=== PATIENT | female | born 2005 | race Hispanic/Latino ===

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

== ENCOUNTER 2025-02-05 19:16 | Emergency (ER) | payer MEDICAID ==
[~2025-02-05] VITALS: Ht 149.9 cm; Wt 106.6 kg
--- NOTE | 2025-02-05 19:30 | NUR ---
UA CUP PROVIDED
[2025-02-05 19:55] LABS: IMMATURE GRANULOCYTE ABSOLUTE 0.12 K/uL (0-1); NUCLEATED RED BLOOD CELLS 0.0 % (0.0-0.19); PLATELET COUNT (AUTO) 257 K/uL (130-400); RED BLOOD CELL COUNT(AUTO) 4.06 MIL/uL (4.00-5.50); RED CELL DISTRIBUTION WIDTH 14.3 % (11.0-15.5); WHITE BLOOD COUNT (AUTO) 15.8 K/uL (4.8-10.8)
--- NOTE | 2025-02-05 20:01 | ERN ---
General Chief Complaint: OB>20 weeks gest. Stated Complaint: ABD PAIN,HEADACHE Time Seen by MD: 19:47 Time Seen by Midlevel: 19:47 Source: patient History of Present Illness Initial Comments Patient is a 19-year-old female who is [id number] weeks and is followed by Dr. Naila Koroma presents to the emergency department for evaluation of right-sided abdominal cramping. She also reports a headache. Denies any other symptoms. Allergies: Coded Allergies: Penicillins (Unverified Allergy, Unknown, 02/22/19) amoxicillin (Unverified Allergy, Unknown, 02/22/19) nystatin (Unverified Allergy, Unknown, RASH, 06/11/19) Home Meds Active Scripts Nitrofurantoin Monohyd/M-Cryst (Macrobid 100 mg Capsule) 100 Mg Capsule, 100 MG PO BID for 5 Days, #10 CAP Prov:RALEIGH FORTE 03/01/22 Reported Medications Vits W-Ca,Fe,FA(<1Mg) ( Vitamins) 1 Each Tablet, 1 EACH PO DAILY, TAB 06/11/19 Past Medical History Past Medical History: No Pertinent History Past Surgical History: Tonsillectomy Female( History) : 3 Para: 2 Aborts: 0 ROS Dictation CONSTITUTIONAL: Negative except for HPI HEAD/FACE: Negative except for HPI EENT: Negative except for HPI RESPIRATORY: Negative except for HPI GASTROINTESTINAL/ABDOMINAL: Negative except for HPI GENITOURINARY: Negative except for HPI MUSCULOSKELETAL: Negative except for HPI INTEGUMENTARY: Negative except for HPI NEUROLOGICAL/PSYCH: Negative except for HPI HEMATOLOGIC/LYMPHATIC: Negative except for HPI All Systems Negative, Except as noted above. 13 point review of systems assessed and all negative except for above. Physical Exam Physical Exam Dictation Vital Signs reviewed General Appearance: Alert, oriented x 3, no acute distress, well developed, n ourished. Head and Face: non-traumatic. Eyes: PERRL, pink conjunctivas, eyelid no trauma, anterior chamber with arcus senilis. Ears: Pinnas intact and no signs of trauma or erythema ear canals clear and no discharge TM no erythema Nose: No discharge, no bleeding. Oropharynx: Mouth normal, tongue pink, pharynx clear,no erythema, tonsils no exudates, no abscesses noted, mucous membrane moist Neck: Supple, non-tender, no thyromegaly, no masses, no JVD, no bruits Breast:Deferred Chest:No tenderness, no crepitus, no paradoxical movement, no retractions Lungs:Clear, well-ventilated, symmetric, no rales, no wheezing, no rhonchi, no stridor, good breath sounds bilaterally Heart: Regular rate, regular rhythm, no murmur, no gallops Vascular: no peripheral edema, Abdomen: Soft, positive bowel sounds, nondistended, no guarding, nontender, no rebound, no masses no hepatomegaly, no splenomegaly, no Rutledge's sign, no hernias. Rectal: Deferred Genital: Deferred Neurological: Normal speech, motor function intact, sensory function intact Musculoskeletal: Neck nontender, full range of motion, back nontender, full range of motion, Extremities: nontender, full range of motion Skin: Color pink, dry, no turgor, no rash, no lacerations, no abrasions, no contusions. Lymphatic: Deferred Results Laboratory and Microbiology Lab and Micro Result Laboratory Tests Test 02/05/25 19:38 White Blood Count 15.8 K/uL (4.8-10.8) H Red Blood Count 4.06 MIL/uL (4.00-5.50) Hemoglobin 10.7 g/dL (12.0-16.0) L Hematocrit 33.6 % (36-48) L Mean Corpuscular Volume 82.8 fL (80-100) Mean Corpuscular Hemoglobin 26.4 pg (27.0-33.0) L Mean Corpuscular Hemoglobin Concent 31.8 g/dL (32.0-36.0) L Red Cell Distribution Width 14.3 % (11.0-15.5) Platelet Count 257 K/uL (130-400) Mean Platelet Volume 11.1 fL (7.5-10.5) H Immature Granulocyte % (Auto) 0.8 % (0-1) Neutrophils (%) (Auto) 77.6 % (40.0-77.0) H Lymphocytes (%) (Auto) 15.7 % (21.0-51.0) L Monocytes (%) (Auto) 4.9 % (3.0-13.0) Eosinophils (%) (Auto) 0.7 % (0.0-8.0) Basophils (%) (Auto) 0.3 % (0.0-5.0) Neutrophils # (Auto) 12.3 K/uL (1.8-7.7) H Lymphocytes # (Auto) 2.5 K/uL (1.0-4.8) Monocytes # (Auto) 0.8 K/uL (0.1-1.0) Eosinophils # (Auto) 0.11 K/uL (0.00-0.70) Basophils # (Auto) 0.04 K/uL (0.00-0.20) Absolute Immature Granulocyte (auto 0.12 K/uL (0-1) Nucleated Red Blood Cells 0.0 % (0.0-0.19) Urine Color LIGHT-YELLOW (YELLOW) Urine Appearance HAZY (CLEAR) Urine pH 7.0 (5.0-8.0) Urine Specific [place] 1.018 (1.001-1.031) Urine Protein NEGATIVE mg/dL (NEGATIVE) Urine Glucose (UA) NEGATIVE mg/dL (NEGATIVE) Urine Ketones NEGATIVE mg/dL (NEGATIVE) Urine Occult Blood NEGATIVE (NEGATIVE) Urine Nitrate NEGATIVE (NEGATIVE) Urine Bilirubin NEGATIVE mg/dL (NEGATIVE) Urine Urobilinogen 2.0 mg/dL (0.2-1.0) H Urine Leukocyte Esterase NEGATIVE [place]/uL Urine RBC 0-1 /HPF (0-1) Urine WBC 0-1 /HPF (0-1) Urine Squamous Epithelial Cells FEW /HPF (0-2) Urine Amorphous Crystals (Auto) FEW /LPF (None Seen) Urine Bacteria FEW /HPF (None Seen) Sodium Level 139 mmol/L (136-145) Potassium Level 4.1 mmol/L (3.5-5.1) Chloride Level 104 mmol/L (101-111) Carbon Dioxide Level 27 mmol/L (21-32) Blood Urea Nitrogen 8 mg/dL (7-18) Creatinine 0.6 mg/dL (0.5-1.0) Glomerular Filtration Rate Calc 131 mL/min (>90) Random Glucose 87 mg/dL (70-105) Total Calcium 9.0 mg/dL (8.5-10.1) Total Bilirubin 0.2 mg/dL (0.2-1.0) Aspartate Amino Transf (AST/SGOT) 12 U/L (10-37) Alanine Aminotransferase (ALT/SGPT) 14 U/L (12-78) Alkaline Phosphatase 86 U/L (50-136) Total Protein 6.7 g/dL (6.0-8.3) Albumin 2.5 g/dL (3.5-5.0) L Lipase 30 U/L (16-77) Human Chorionic Gonadotropin, Quant 77882 mIU/mL (0-5) H Labs Reviewed?: Yes MDM MDM: Patient is a 19-year-old female who is weeks and is followed by Dr. Naila Koroma presents to the emergency department for evaluati on of right-sided abdominal cramping. She also reports a headache. Denies any other symptoms. Physical examination is unremarkable. Your blood work today showed a slightly elevated white blood cell count. However this appears to be nonspecific as there are no signs of infection. The rest of your blood work is unremarkable. You are not anemic. Your kidney function is normal. Your electrolytes are normal. Your urinalysis does not show any evidence of infection or blood. Given that there is no microscopic blood in your urinalysis there was a very low risk of having a kidney stone. Your blood work also shows no signs of a kidney infection. Your pelvic ultrasound shows a single live intrauterine with a gestational age of 21 weeks and five days with no abnormalities. I recommend you follow up with your primary care doctor and OBGYN for further evaluation. Differential diagnosis: Urinary tract infection, constipation, pyelonephritis There are no social concerns with this patient. Prescription drug management Prescriptions will include: None Medical management and examination interpretation discussions were had by me with other qualified healthcare professionals as indicated for the patient's care. ED Course Orders Procedure Category Date Status Time Cbc With Differential LAB 02/05/25 Complete 19:31 Comprehensive LAB 02/05/25 Complete Metabolic Panel 19:31 Hcg,Quantitative LAB 02/05/25 Complete 19:31 Urinalysis Profile LAB 02/05/25 Complete 19:31 Us Ob >14 Weeks US 02/05/25 Resulted 19:58 Lipase LAB 02/05/25 Complete 19:38 Vital Signs Date Time Temp Pulse Resp B/P (MAP) Pulse Ox O2 Delivery O2 Flow Rate FiO2 02/05/25 19:26 98.2 103 20 138/85 100 Room Air [facility] [address] [place] [address] [id number] IMAGING REPORT Signed PATIENT: RICHARD JOHNSON MR#: [id number] : 2005 SEX: F AGE: 19 LOCATION: [facility] ORDER 58 STATUS: REG ER REPORT#: [id number] SERVICE 57 REASON: abdominal cramping during ORDERING PHYSICIAN: CHARLEY ACUNA PROCEDURE: OB >14 - US OB >14 WEEKS EXAMINATION: COMPLETE TRANSABDOMINAL OBSTETRIC ULTRASOUND. CLINICAL INDICATION: OB second trimester. Abdominal cramping. COMPARISON: None. TECHNIQUE: Grayscale ultrasonography of the lower abdomen and pelvis. FINDINGS: A single, live, intrauterine fetus is seen in cephalic presentation. The estimated date of delivery as per the ultrasound done today is 06/13/2025, corresponding to a gestational age of 21 weeks 5 days. The placenta is posterior, grade I maturity. No placenta previa. Cervix is closed, measures 3.7 cm. Heart rate is 146 beats per minute. weight is 490 +/- 74 g (48%). The parameters are as follows: Biparietal diameter: 4.9 cm (EGA - 20 weeks, 6 days). Head circumference: 18.7 cm (EGA - 21 weeks, 0 days). Abdominal circumference: 17.8 cm (EGA - 22 weeks, 5 days). Femoral length: 3.8 cm (EGA - 22 weeks, 2 days). HC/AC ratio: 1.05 Estimated gestational age: 21 Weeks 5 Days. EDC (by LMP): 06/09/2025 and EDC (by measurement): 06/13/2025. parts, including the spine, stomach, kidneys, urinary bladder, anterior abdominal wall, lower extremities, upper extremities, three-vessel umbilical cord, face, septum pellucidum, and cerebellum, appear normal. There is a possible chorionic bump that measures 4.9 x 2.4 x 3.5 cm. The lateral ventricle measures 0.6 cm. Amniotic fluid is normal for the period of gestation, with the largest pocket measuring 4.6 cm. The amniotic fluid index is: 12.8 cm. IMPRESSION: Single live intrauterine with corresponding gestational age of 21 weeks and 5 days with cephalic presentation at the time of this scan and with no obvious anatomical abnormality. Possible chorionic bump. Recommend follow-up ultrasound. /[place] DICTATED BY: PACO WILSON Jr., MD DATE: 02/05/252323 ELECTRONICALLY SIGNED BY: PACO WILSON Jr., MD DATE: 02/05/252323 DX & DISP Disposition: Discharge Departure Impression: Primary Impression: Second trimester Condition: Stable Additional Instructions: Your blood work today showed a slightly elevated white blood cell count. However this appears to be nonspecific as there are no signs of infection. The rest of your blood work is unremarkable. You are not anemic. Your kidney function is normal. Your electrolytes are normal. Your urinalysis does not show any evidence of infection or blood. Given that there is no microscopic blood in your urinalysis there was a very low risk of having a kidney stone. Your blood work also shows no signs of a kidney infection. Your pelvic ultrasound shows a single live intrauterine with a gestational age of 21 weeks and five days with no abnormalities. I recommend you follow up with your primary care doctor and OBGYN for further evaluation. Referrals: JAUN LEE MD (PCP) Time of Disposition: 22:36 I have reviewed the case, and I agree with, Diagnosis and Plan I performed the substantive portion of the visit. I have reviewed and personally made and approve the management plan that is documented in the note by myself or the GRAHAM. I acknowledge for responsibility for the patient's management plan. CHARLEY ACUNA PAC Feb 05, 2025 20:01
[2025-02-05 20:08] LABS: CREATININE 0.6 mg/dL (0.5-1.0); GLOMERULAR FILTR. RATE CALC 131.0 mL/min (>90); GLUCOSE,RANDOM 87.0 mg/dL (70-105); SODIUM SERUM 139.0 mmol/L (136-145); UREA NITROGEN, BLOOD 8.0 mg/dL (7-18)
[2025-02-05 20:15] LABS: GLUCOSE, URINE (UA) NEGATIVE (NEGATIVE); LEUKOCYTE ESTERASE ,URINE NEGATIVE Leu/uL (NEGATIVE); NITRATE,URINE NEGATIVE (NEGATIVE); OCCULT BLOOD,URINE NEGATIVE (NEGATIVE)
[2025-02-05 20:16] LABS: ADD UA MICROSCOPIC YES; APPEARANCE,URINE HAZY (CLEAR)
[2025-02-05 20:21] LABS: SQUAMOUS EPITHELIAL CELL,UR FEW /HPF (0-2)
[2025-02-05 20:35] LABS: ASPARTATE AMINOTRANSFERASE 12.0 U/L (10-37); TOTAL PROTEIN, SERUM 6.7 g/dL (6.0-8.3)
--- NOTE | 2025-02-05 22:25 | HMCIMG ---
EXAMINATION: COMPLETE TRANSABDOMINAL OBSTETRIC ULTRASOUND. CLINICAL INDICATION: OB second trimester. Abdominal cramping. COMPARISON: None. TECHNIQUE: Grayscale ultrasonography of the lower abdomen and pelvis. FINDINGS: A single, live, intrauterine fetus is seen in cephalic presentation. The estimated date of delivery as per the ultrasound done today is 06/13/2025, corresponding to a gestational age of 21 weeks 5 days. The placenta is posterior, grade I maturity. No placenta previa. Cervix is closed, measures 3.7 cm. Heart rate is 146 beats per minute. weight is 490 +/- 74 g (48%). The parameters are as follows: Biparietal diameter: 4.9 cm (EGA - 20 weeks, 6 days). Head circumference: 18.7 cm (EGA - 21 weeks, 0 days). Abdominal circumference: 17.8 cm (EGA - 22 weeks, 5 days). Femoral length: 3.8 cm (EGA - 22 weeks, 2 days). HC/AC ratio: 1.05 Estimated gestational age: 21 Weeks 5 Days. EDC (by LMP): 06/09/2025 and EDC (by measurement): 06/13/2025. parts, including the spine, stomach, kidneys, urinary bladder, anterior abdominal wall, lower extremities, upper extremities, three-vessel umbilical cord, face, septum pellucidum, and cerebellum, appear normal. There is a possible chorionic bump that measures 4.9 x 2.4 x 3.5 cm. The lateral ventricle measures 0.6 cm. Amniotic fluid is normal for the period of gestation, with the largest pocket measuring 4.6 cm. The amniotic fluid index is: 12.8 cm. IMPRESSION: Single live intrauterine with corresponding gestational age of 21 weeks and 5 days with cephalic presentation at the time of this scan and with no obvious anatomical abnormality. Possible chorionic bump. Recommend follow-up ultrasound. /[place]
[2025-02-05 23:26] VITALS: BP 135/81; PULSE 89; RESP 17; TEMP 98.6; O2SAT 99
== END 2025-02-05 23:35 | disposition home or self-care (01) ==
LOC: EDH 19:16
DX: O26.892 Other specified pregnancy related conditions, second trimester (principal); R10.9 Unspecified abdominal pain; Z3A.22 22 weeks gestation of pregnancy; Z88.0 Allergy status to penicillin; Z88.1 Allergy status to other antibiotic agents; Z90.89 Acquired absence of other organs
CPT/HCPCS: 36415; 76805; 80053; 81001; 83690; 84702; 85025; 99284